=== PATIENT | male | born 1985 | race Caucasian/White ===

== ENCOUNTER 2016-11-13 22:16 | Emergency (ER) | payer BC ==
[~2016-11-13] VITALS: Ht 185.4 cm; Wt 122.9 kg
[2016-11-13 22:19] VITALS: Ht 185.4 cm; Wt 122.9 kg
--- OUTSIDE RECORDS SUMMARY | 2016-11-13 22:20 | XMS REPORT | Continuity of Care Document ---
Author Author Monica Carlton Monica Address Unknown Phone Unavailable Care Team Providers Care Live In Housekeeper Nanny Name Role Phone [employer] Unavailable Unavailable Problems Medications Allergies, Adverse Reactions, Alerts Immunizations Results Vital Signs Encounters Procedures Plan of Care Social History Assessment and Plan Family History Value Date Source Advance Directives Order Name Results Value Date Source
[2016-11-13] MEDS ORDERED: HYDROMORPHONE 2mg/ml INJECTION IV ONE (22:30)
[2016-11-13] MEDS ORDERED: PROCHLORPERAZINE 10mg/2ml INJECTION IV ONE (22:30)
[2016-11-13] MEDS ORDERED: KETOROLAC 30mg/ml INJECTION IV ONE (22:30)
[2016-11-13] MEDS ORDERED: NORMAL SALINE 1,000 ML IV ONE (22:30)
--- NOTE | 2016-11-13 22:33 | ERPDOC ---
Departure Disposition Decision Date: November 13, 2016 Disposition Decision Time: 23:15 Disposition: 01 DISCHARGED HOME, SELF-CARE Impression Impression Impression: Primary Impression: Dysfunctional gallbladder Additional Impression: Gallstones Severity: Severe Condition: Improved Seen By: Physician only Patient Instructions: Gallstones (ED) Problems/Meds/Labs Reviewed?: Yes Medications reviewed and manag: Yes Additional Instructions: Aleve 2 tablets twice daily or ibuprofen 800 mg 4 times daily for baseline pain control Compazine 10 mg one tablet 4 times daily to help with nausea and gallbladder cramps May use [place] as needed for pain Observe a strict low-fat diet See your doctor or in the ER for any worsening condition this weekend Follow up care ordered?: Yes Mental Status: Alert Scripts Prochlorperazine Maleate (Compazine) 10 Mg Tablet 10 MG PO QID, #30 TAB 0 Refills Prov: CARRILLO OLIVER MD 11/13/16 HPI - Abdominal Pain General Chief Complaint: Abdominal Pain Stated Complaint: GALLSTONES, GALLBLADDER ATTACK Time Seen by Provider: 22:23 Source: patient, family History/Exam Limitations: no limitations HPI - Abdominal Pain Initial Comments In the past week the patient has had 2 more episodes of severe right upper quadrant and epigastric abdominal pain, and seen at [facility] in [place]. After CT scan sonogram and multiple labs, the patient was diagnosed with gallstones and gallbladder dysfunction. He was offered to have his gallbladder taken out today, but the patient elected to have it taken out on Wednesday and instead came down in [place] to help his mother move some things at her house. Patient has been having worsening epigastric and right upper quadrant pain for several hours, and then when he ate Kazakh food for dinner the pain seemed to be the most severe. Pt has used Zofran and [place] at home without relief. Occurred At: home Onset: Rapid Duration: 4-6 hrs Quality: sharpness, stabbing Location: RUQ, epigastric Radiation: no radiation Associated Symptoms: nausea/vomiting, DENIES: back pain, chest pain, diaphoresis, fatigue, fever/chills, headache, heartburn, rash, shortness of breath, swelling/mass in abdomen, syncope, weakness Hx of Similar Symptoms: Yes Allergies: Coded Allergies: No Known Drug Allergies (Verified Allergy, Unknown, 11/13/16) Past History Patient Medical History Problem List Updates: Factor V Leiden deficiency Past Medical History GI: gallbladder disease Surgical History Denies Surgeries Social History Smoking Status: Never smoker Does patient use chewing tobac: No Second Hand Exposure: No Substance Use Type: does not use Alcohol Intake: none Record Review Pertinent history updated: Yes Review of Systems Constitutional Constitutional: DENIES: appetite decrease, appetite increase, chills, dizziness , fever, weakness ENMT Ears: DENIES: pain Hearing: DENIES: hearing loss, tinnitus Balance: DENIES: vertigo Mouth/Throat: DENIES: change in swallowing, change in voice, hoarsness, painful swallowing, sore throat Cardiovascular Cardiac: DENIES: chest pain, dyspnea on exertion Rhythm/Rate: DENIES: irregular beat, palpitations, tachycardia Vascular: DENIES: pedal edema Pulmonary Respiratory: DENIES: cough, dyspnea, pleuritic chest pain GI Upper Abdomen: nausea, pain, DENIES: dysphagia, food intolerances, heartburn/ indigestion, hematemesis, vomiting Lower Abdomen: DENIES: blood in stool, dnaiel-colored stools, constipation, diarrhea, melena, pain, painful BM General: DENIES: burning, dysuria, frequency, pain, urgency Musculoskeletal General: DENIES: cramps, joint pain, joint swelling, pain, weakness Integumentary Skin: DENIES: rash, sores Neurological General: DENIES: headache, numbness, tingling, vertigo, weakness Physical Exam General General Nourishment: well nourished, well developed, appears stated age General Body Habitus: well groomed Vitals and Pain First Documented Vital Signs Date Time Temp Pulse Resp B/P Pulse Ox O2 Delivery O2 Flow Rate FiO2 11/13/16 22:19 98.2 68 16 179/101 98 Room Air Weight: Kilograms: Height (feet): Height (inches): Triage Pain Scale: RN VS reviewed by Provider: Yes Normal Exams: Head: Normocephalic w/o trauma Eyes: Pupils are PERRLA w/ EOMI, No scleral icterus, irritation, or foreign bodies noted ENMT: No facial trauma, nasal exudates, pharyngeal erythema, or exudates are noted Neck: Full range of motion, without adenopathy, JVD, bruits or thyromegaly Chest/Resp: Clear all logan, with good airflow, and symmetry bilaterally CV: Regular rate and rhythm, without murmur or gallop, Pulses 2+ all extremities, capillary refill, <2 seconds all ext., no pedal edema noted Lymphatic: No lymphadenopathy, or lymphedema noted Musculoskeletal: No tenderness, or deformity noted, good range of motion, all extremities Integumentary: No rashes, hives, or bruising noted, hair and nails, without abnormality Neurologic: Patient is alert, and oriented, cranial nerves, motor/sensory/ cerebellar, exams w/o gross deficits, to observation Psychiatric: Patient exhibits, appropriate attention, emotion and affect Abdomen (brief) Abdominal Brief: FOUND: bowel normo active x4, soft, tender (return epigastric and right upper quadrant tenderness, guarding but without rebound), NOT FOUND: distended, hepatosplenomegaly Progress Results/Orders Orders Procedure Category Date Status Time Iv Lock (Ed Only) EDM 11/13/16 Transmitted 22:25 Cbc W/Auto LAB 11/13/16 Complete Diff-Reflex Manual Cmp - Comprehensive LAB 11/13/16 Complete Metabolic Lipase LAB 11/13/16 Complete Normal Saline (Normal PHA 11/13/16 Complete Saline Iv) 22:30 Prochlorperazine PHA 11/13/16 Complete (Compazine) 22:30 Ketorolac (Toradol) PHA 11/13/16 Complete 22:30 Hydromorphone PHA 11/13/16 Complete (Dilaudid) 22:30 Lab Results Laboratory Tests Test 11/13/16 22:46 White Blood Count 5.7T/MM3 Red Blood Count 5.53M/MM3 Hemoglobin 16.8GM/DL Hematocrit 47.2% Mean Corpuscular Volume 85.4UM3 Mean Corpuscular Hemoglobin 30.4UUG Mean Corpuscular Hemoglobin Concent 35.6GM/DL RDW Standard Deviation 38.4FL Platelet Count 234T/MM3 Mean Platelet Volume 10.3UM3 Immature Granulocyte % (Auto) 0.2% Neutrophils (%) (Auto) 40.2% Lymphocytes (%) (Auto) 46.4% Monocytes (%) (Auto) 9.8% Eosinophils (%) (Auto) 3.0% Basophils (%) (Auto) 0.4% Absolute Immature Granulocyte (auto 0.01T/MM3 Absolute Neutrophils (auto) 2.3T/MM3 Absolute Lymphocytes (auto) 2.7T/MM3 Absolute Monocytes (auto) 0.6T/MM3 Absolute Eosinophils (auto) 0.2T/MM3 Absolute Basophils (auto) 0.0T/MM3 Turbidity < 20 Sodium Level 143MEQ/L Potassium Level 4.1MEQ/L Chloride Level 106MEQ/L Carbon Dioxide Level 20MEQ/L Anion Gap 17MEQ/L Blood Urea Nitrogen 13.0MG/DL Creatinine 0.9MG/DL Glomerular Filtration Rate Calc 97 BUN/Creatinine Ratio 14RATIO Glucose Level 127MG/DL Calculated Osmolality 277MOSM/KG Calcium Level 10.0MG/DL Total Bilirubin 0.70MG/DL Icterus Index < 2 Aspartate Amino Transf (AST/SGOT) 44U/L Alanine Aminotransferase (ALT/SGPT) 104U/L Alkaline Phosphatase 77U/L Total Protein 8.2G/DL Albumin 5.1G/DL Globulin 3.1G/DL Albumin/Globulin Ratio 1.6RATIO Lipase 114U/L Chemistry Specimen Hemolysis 24 Medications Current ED Medications Sodium Chloride (Normal Saline IV) 1,000 ml @ 0 mls/hr Q0M ONCE IV Last administered on 11/13/16 22:50; Start 11/13/16 at 22:30; Stop 11/13/16 at 22:31; Status DC Prochlorperazine Edisylate (Compazine) 10 mg O ONCE IV Last administered on 22:54; Start 11/13/16 at 22:30; Stop 11/13/16 at 22:31; Status DC Ketorolac Tromethamine (Toradol) 30 mg O ONCE IV Last administered on 22:54; Start 11/13/16 at 22:30; Stop 11/13/16 at 22:31; Status DC Hydromorphone HCl (Dilaudid) 1 mg O ONCE IV Last administered on 11/13/16 22: 54; Start 11/13/16 at 22:30; Stop 11/13/16 at 22:31; Status DC Progress Progress Patient given Toradol, Compazine, Dilaudid, and 1 L normal saline IV fluid bolus - to relief, patient now rates his pain 3 out of 10, and says this is very tolerable CBC - n CMP/L - Hernandez abnormalities only, patient does not have an obstructive pattern to his lab. Patient is sent home with prescription and pack for Compazine to use 4 times daily in addition to an NSAID of his choice. Patient states he has adequate amount of hydrocodone at home, and will use it only as needed CARRILLO OLIVER MD November 13, 2016 22:33
--- OUTSIDE RECORDS SUMMARY | 2016-11-13 22:33 | XMS REPORT | Continuity of Care Document ---
Author Author Monica Carlton Monica Address Unknown Phone Unavailable Care Team Providers Care Applications Support Analyst Name Role Phone [employer] Unavailable Unavailable Problems Medications Allergies, Adverse Reactions, Alerts Immunizations Results Vital Signs Encounters Procedures Plan of Care Social History Assessment and Plan Family History Value Date Source Advance Directives Order Name Results Value Date Source
[2016-11-13 22:50] LABS: BASOPHILS % (AUTO) 0.4 % (0-2); EOSINOPHILS # (AUTO) 0.2 T/MM3 (0-0.5); HCT - HEMATOCRIT 47.2 % (41-53); HGB - HEMOGLOBIN 16.8 GM/DL (13.5-17.5); IMMATURE GRANULOCYTE # (AUTO) 0.01 T/MM3 (0.00-0.03); IMMATURE GRANULOCYTE % (AUTO) 0.2 % (0.0-0.5); LYMPHOCYTES # (AUTO) 2.7 T/MM3 (1-4.8); LYMPHOCYTES % (AUTO) 46.4 % (23-45); MEAN CORPUSCULAR HGB 30.4 UUG (26-34); MEAN CORPUSCULAR HGB CONC(MCHC 35.6 GM/DL (31-37); MEAN CORPUSCULAR VOLUME 85.4 UM3 (80-100); MEAN PLATELET VOLUME 10.3 UM3 (9.4-12.4); MONOCYTES # (AUTO) 0.6 T/MM3 (0-0.8); MONOCYTES % (AUTO) 9.8 % (0-9.0); NEUTROPHILS #(AUTO)-ABSOLUTE 2.3 T/MM3 (1.8-7.7); NEUTROPHILS % (AUTO) 40.2 % (33-66); RED BLOOD COUNT 5.53 M/MM3 (4.50-5.90); WBC - WHITE BLOOD COUNT 5.7 T/MM3 (4.5-11.0)
[2016-11-13 23:00] LABS: ALBUMIN 5.1 G/DL (3.5-5.0); ALBUMIN/GLOBULIN RATIO 1.6 RATIO (1.1-2.2); ALKALINE PHOSPHATASE 77 U/L (38-126); ALT (SGPT) 104 U/L (21-72); ANION GAP 17 MEQ/L (5-15); AST (SGOT) 44 U/L (17-59); BUN/CREATININE RATIO 14 RATIO (6-26); CHLORIDE 106 MEQ/L (98-107); CO2 - CARBON DIOXIDE 20 MEQ/L (22-30); CREATININE 0.9 MG/DL (0.8-1.5); GLOMERULAR FILTRATION RATE 97; GLUCOSE 127 MG/DL (75-110); LIPASE 114 U/L (23-300); POTASSIUM 4.1 MEQ/L (3.6-5); SODIUM 143 MEQ/L (134-144); TOTAL PROTEIN 8.2 G/DL (6.3-8.2)
[2016-11-13] MEDS ORDERED: WARF10TA4 PO (23:07)
[2016-11-13] MEDS ORDERED: PROC-14 PO (23:17)
[2016-11-13 23:30] VITALS: BP 149/79; PULSE 66; RESP 16; TEMP 98.2; O2SAT 97
[2016-11-13] MEDS ORDERED: PROCHLORPERAZINE 10MG (PrePack) SENT HOME ONE (23:30)
[2016-11-14] MEDS ORDERED: HYDR-3989 PO (10:46)
== END 2016-11-13 22:30 | disposition home or self-care (01) ==
LOC: ED 22:16
DX: K80.80 Other cholelithiasis without obstruction (principal); K82.8 Other specified diseases of gallbladder
CPT/HCPCS: 36000; 80053; 83690; 85025; 96361; 96374; 96375; 99284; J0780; J1170; J1885; J7030

== ENCOUNTER 2016-11-14 09:25 | Emergency (ER) | payer BC ==
[~2016-11-14] VITALS: Ht 182.9 cm; Wt 122.6 kg
[~2016-11-14 09:25] MED LIST: PROC-14 PO; WARF10TA4 PO
--- OUTSIDE RECORDS SUMMARY | 2016-11-14 09:28 | XMS REPORT | Continuity of Care Document ---
Author Author Monica Carlton Monica Address Unknown Phone Unavailable Care Team Providers Care Consultants Intern Name Role Phone [employer] Unavailable Unavailable Problems Medications Allergies, Adverse Reactions, Alerts Immunizations Results Vital Signs Encounters Procedures Plan of Care Social History Assessment and Plan Family History Value Date Source Advance Directives Order Name Results Value Date Source
--- OUTSIDE RECORDS SUMMARY | 2016-11-14 09:28 | XMS REPORT | Continuity of Care Document ---
Author Author [facility] Organization [facility] Address Unknown Phone Unavailable Support Name Relationship Address Phone CARRILLO OLIVER MD Caregiver [address] [place] [address] Unavailable MICHEL, LUKE Next Of Kin [address] [place] [address] Insurance Providers Guarantor Edgar Young Address [address] [place] [address] Email DECLINED 11-13-16 [employer] Other Policy Number [id number] Subscriber's Name Edgar Young Relationship 18 Self Group Number [id number] Chief Complaint and Reason for Visit Chief Complaint Abdominal Pain Reason for Visit Gallstones Dysfunctional gallbladder Problems Past Problems Medical Problem Onset Date Dysfunctional gallbladder Unknown Gallstones Unknown Medications Current Home Medications Medication Dose Units Route Directions Days Qty Instructions Start Date Prochlorperazine Maleate (Compazine) 10 Mg Tablet 10 Mg Oral Four Times Daily 30 Tablet 11/13/16 Warfarin Sodium 10 Mg Tablet 1 Tab Oral Daily 11/13/16 Social History Social History Problem Response Recorded Date/Time Onset Date Status Hx Substance Use Y Occasional Marijuana "not for a while" 11/13/2016 11:07pm Not Applicable Not Applicable Hx Alcohol Use Y occasional 11/13/2016 11:07pm Not Applicable Not Applicable Query Response Start Date Stop Date Smoking Status Heavy Smoker Hospital Discharge Instructions No hospital discharge instructions. Plan of Care Discharge Date 11/13/16 10:30pm Disposition 01 DISCHARGED HOME, SELF-CARE Condition at Discharge Improved Instructions/Education Provided Gallstones (ED) Prescriptions See Medication Section Additional Instructions/Education Aleve 2 tablets twice daily or ibuprofen 800 mg 4 times daily for baseline pain control Compazine 10 mg one tablet 4 times daily to help with nausea and gallbladder cramps May use [place] as needed for pain Observe a strict low-fat diet See your doctor or in the ER for any worsening condition this weekend Care Plan and Goals Physician Care Plan Problem: Gallbladder dysfunction with gallstones Goal: Follow up with primary care provider Instructions: Take medications and follow care plan as discussed/written Aleve 2 tablets twice daily or ibuprofen 800 mg 4 times daily for baseline pain control Compazine 10 mg one tablet 4 times daily to help with nausea and gallbladder cramps May use [place] as needed for pain Observe a strict low-fat diet See your doctor or in the ER for any worsening condition this weekend Functional Status No functional status results. Allergies, Adverse Reactions, Alerts Allergen Type Severity Reaction Status Last Updated No Known Drug Allergies Allergy Unknown Active 11/13/16 Immunizations Query Response on File Recorded Date/Time Influenza Vaccine Hx no 11/13/16 11:07pm Tetanus Diptheria Vaccine History 11/10/2016 11/13/16 11:07pm Vital Signs Acute Vital Signs Vital Response Date/Time Temperature (Fahrenheit) 98.2 deg F (96.8 - 99.1) 11/13/2016 11:30pm Temperature (Calculated Celsius) 36.99589 degrees C (36.0 - 37.3) 11/13/2016 11:30pm Pulse Rate (adult) 66 bpm (60 - 100) 11/13/2016 11:30pm Respiratory Rate 16 breaths/min (10 - 20) 11/13/2016 11:30pm O2 Sat by Pulse Oximetry 97 % (90 - 100) 11/13/2016 11:30pm Blood Pressure 149/79 mm Hg 11/13/2016 11:30pm Height (Feet) 6 feet 11/13/2016 10:19pm Height (Inches) 1.00 inches 11/13/2016 10:19pm Weight (Kilograms) 122.900 kg 11/13/2016 10:19pm Body Mass Index (BMI) 35.0 11/13/2016 10:19pm Results Laboratory Results Test Name Result Units Flags Reference Collection Date/Time Result Date/ Time Comments White Blood Count 5.7 T/MM3 4.5-11.0 11/13/2016 10:46pm 11/13/2016 10: 50pm Red Blood Count 5.53 M/MM3 4.50-5.90 11/13/2016 10:46pm 11/13/2016 10: 50pm Hemoglobin 16.8 GM/DL 13.5-17.5 11/13/2016 10:46pm 11/13/2016 10:50pm Hematocrit 47.2 % 41-53 11/13/2016 10:46pm 11/13/2016 10:50pm Mean Corpuscular Volume 85.4 UM3 80-100 11/13/2016 10:46pm 11/13/2016 10:50pm Mean Corpuscular Hemoglobin 30.4 UUG 26-34 11/13/2016 10:46pm 2016 10:50pm Mean Corpuscular Hemoglobin Concent 35.6 GM/DL 31-37 11/13/2016 10:46pm 11/13/2016 10:50pm RDW Standard Deviation 38.4 FL 36.9-50.2 11/13/2016 10:46pm 11/13/2016 10:50pm Platelet Count 234 T/MM3 130-400 11/13/2016 10:46pm 11/13/2016 10:50pm Mean Platelet Volume 10.3 UM3 9.4-12.4 11/13/2016 10:46pm 11/13/2016 10 :50pm Neutrophils (%) (Auto) 40.2 % 33-66 11/13/2016 10:46pm 11/13/2016 10: 50pm Lymphocytes (%) (Auto) 46.4 % H 23-45 11/13/2016 10:46pm 11/13/2016 10: 50pm Monocytes (%) (Auto) 9.8 % H 0-9.0 11/13/2016 10:46pm 11/13/2016 10: 50pm Eosinophils (%) (Auto) 3.0 % 0-4 11/13/2016 10:46pm 11/13/2016 10:50pm Basophils (%) (Auto) 0.4 % 0-2 11/13/2016 10:46pm 11/13/2016 10:50pm Immature Granulocyte % (Auto) 0.2 % 0.0-0.5 11/13/2016 10:46pm 2016 10:50pm Absolute Neutrophils (auto) 2.3 T/MM3 1.8-7.7 11/13/2016 10:46pm 2016 10:50pm Absolute Lymphocytes (auto) 2.7 T/MM3 1-4.8 11/13/2016 10:46pm 2016 10:50pm Absolute Monocytes (auto) 0.6 T/MM3 0-0.8 11/13/2016 10:46pm 2016 10:50pm Absolute Eosinophils (auto) 0.2 T/MM3 0-0.5 11/13/2016 10:46pm 2016 10:50pm Absolute Basophils (auto) 0.0 T/MM3 0-0.2 11/13/2016 10:46pm 2016 10:50pm Absolute Immature Granulocyte (auto 0.01 T/MM3 0.00-0.03 11/13/2016 10: 46pm 11/13/2016 10:50pm Icterus Index < 2 0-7 11/13/2016 10:46pm 11/13/2016 11:00pm Chemistry Specimen Hemolysis 24 0-25 11/13/2016 10:46pm 11/13/2016 11 :00pm 0-25: Specimen Exhibited No Hemolysis. Turbidity < 20 0-20 11/13/2016 10:46pm 11/13/2016 11:00pm Sodium Level 143 MEQ/L 134-144 11/13/2016 10:46pm 11/13/2016 11:00pm Potassium Level 4.1 MEQ/L 3.6-5 11/13/2016 10:46pm 11/13/2016 11:00pm Chloride Level 106 MEQ/L 98-107 11/13/2016 10:46pm 11/13/2016 11:00pm Carbon Dioxide Level 20 MEQ/L L 22-30 11/13/2016 10:46pm 11/13/2016 11: 00pm Anion Gap 17 MEQ/L H 5-15 11/13/2016 10:46pm 11/13/2016 11:00pm Blood Urea Nitrogen 13.0 MG/DL 9-20 11/13/2016 10:46pm 11/13/2016 11: 00pm Creatinine 0.9 MG/DL 0.8-1.5 11/13/2016 10:46pm 11/13/2016 11:00pm BUN/Creatinine Ratio 14 RATIO 6-26 11/13/2016 10:46pm 11/13/2016 11: 00pm Glomerular Filtration Rate Calc 97 11/13/2016 10:46pm 11/13/2016 11 :00pm Glucose Level 127 MG/DL H 75-110 11/13/2016 10:46pm 11/13/2016 11:00pm Calculated Osmolality 277 MOSM/KG 261-280 11/13/2016 10:46pm 2016 11:00pm Calcium Level 10.0 MG/DL 8.4-10.2 11/13/2016 10:46pm 11/13/2016 11: 00pm Total Bilirubin 0.70 MG/DL 0.20-1.30 11/13/2016 10:46pm 11/13/2016 11: 00pm Alkaline Phosphatase 77 U/L 38-126 11/13/2016 10:46pm 11/13/2016 11: 00pm Total Protein 8.2 G/DL 6.3-8.2 11/13/2016 10:46pm 11/13/2016 11:00pm Albumin 5.1 G/DL H 3.5-5.0 11/13/2016 10:46pm 11/13/2016 11:00pm Globulin 3.1 G/DL 2.4-3.6 11/13/2016 10:46pm 11/13/2016 11:00pm Albumin/Globulin Ratio 1.6 RATIO 1.1-2.2 11/13/2016 10:46pm 11/13/2016 11:00pm Aspartate Amino Transf (AST/SGOT) 44 U/L 17-59 11/13/2016 10:46pm 11/13 11:00pm Alanine Aminotransferase (ALT/SGPT) 104 U/L H 21-72 11/13/2016 10:46pm 11/13/2016 11:00pm Lipase 114 U/L 23-300 11/13/2016 10:46pm 11/13/2016 11:00pm Procedures No known history of procedures. Encounters Encounter Location Arrival/Admit Date Discharge/Depart Date Attending Provider Departed Emergency Room [facility] 11/13/16 10:16pm 11/13/16 10: 30pm CARRILLO OLIVER MD Recent Diagnosis
--- OUTSIDE RECORDS SUMMARY | 2016-11-14 09:28 | XMS REPORT | Continuity of Care Document ---
Author Author [facility] Organization [facility] Address Unknown Phone Unavailable Care Team Providers Care Arbitrator Name Role Phone Primary Care Physician Unavailable Source Comments Some departments are not documenting in the electronic medical record. If you do not see the information that you expected, contact Release of Information in the Health Information Management department at [phone] for further assistance in locating additional records.[facility] Active Allergies and Adverse Reactions Not on File Current Medications Not on file Active Problems Not on file Social History Tobacco Use Types Packs/Day Years Used Date Never Assessed Plan of Care Health Maintenance Due Date Last Done Comments Physical (Comprehensive) 1990 Exam Pertussis Vaccine 1994 Tetanus Vaccine 01/03/2000 Influenza Vaccine 03/12/2017 Results from Last 3 Months Not on file
[2016-11-14 09:30] VITALS: Ht 182.9 cm; Wt 122.6 kg
--- NOTE | 2016-11-14 09:33 | ERPDOC ---
Departure Disposition Decision Date: November 14, 2016 Disposition Decision Time: 11:19 Disposition: 01 DISCHARGED HOME, SELF-CARE Impression Impression Impression: Primary Impression: Cholelithiasis Cholelithiasis location: gallbladder Cholecystitis presence: without cholecystitis Biliary obstruction: without biliary obstruction Qualified Codes: K80.20 - Calculus of gallbladder without cholecystitis without obstruction Severity: Moderate Condition: Improved Seen By: Physician only Referrals: YOUR SURGEON 3 Days Patient Instructions: Gallstones (ED), Low Fat Diet (ED) Problems/Meds/Labs Reviewed?: Yes Medications reviewed and manag: Yes Additional Instructions: You have gall stones without evidence of infection or obstruction. Keep your diet low fat (if you're not sure, don't eat it). Take the pain meds and nausea meds as previously prescribed. Follow up to have your gallbladder removed on Wednesday as previously arranged. Follow up care ordered?: Yes Mental Status: Alert, Oriented HPI - CVA/Neuro General Stated Complaint: GALL BLADDER PAIN Time Seen by Provider: 09:39 Source: patient, family Exam Limitations: no limitations HPI - CVA/NEURO Initial Comments 31yo man presents to the ER with RUQ pain. Pt has previously been dx'ed with cholelithiasis without cholecystitis. Has a surgical time/date with Gen Surg in [place] 3 days from today. Pt has continued to present to the ER because he continues to have RUQ pain. Pt also has not been adhering to a cholecystitis diet (ate [place] food yesterday evening!). Pts mother is demanding that pt be admitted for surgery today! Occurred At: home Onset/Timing: Constant Duration: 1 week Pain/Severity Scale: Now & Worst: 10/10 Severity: severe Hx of Similar Symptoms: Yes Allergies: Coded Allergies: No Known Drug Allergies (Verified Allergy, Unknown, 11/14/16) Past History Past Medical History GI: gallbladder disease Surgical History Denies Surgeries Social History Does patient use chewing tobac: No Second Hand Exposure: No Substance Use Type: does not use Alcohol Intake: none Review of Systems GI Upper Abdomen: nausea, pain, see HPI, DENIES: dysphagia, food intolerances, heartburn/indigestion, hematemesis, vomiting All other Systems All Other Systems: Reviewed and Negative Physical Exam General General Nourishment: well nourished, well developed, appears stated age, no acute distress, adult, obese General Body Habitus: well groomed Vitals and Pain First Documented Vital Signs Date Time Temp Pulse Resp B/P Pulse Ox O2 Delivery O2 Flow Rate FiO2 11/14/16 09:30 98.5 80 20 171/104 98 Room Air Weight: Kilograms: Height (feet): 6 Height (inches): 1.00 Triage Pain Scale: RN VS reviewed by Provider: Yes Normal Exams: Head: Normocephalic w/o trauma Eyes: Pupils are PERRLA w/ EOMI, No scleral icterus, irritation ENMT: No facial trauma, nasal exudates, pharyngeal erythema Neck: Full range of motion, without adenopathy Lymphatic: No lymphadenopathy Musculoskeletal: No tenderness, or deformity noted Integumentary: No rashes, hives, or bruising noted Neurologic: Patient is alert, and oriented Psychiatric: Patient exhibits, appropriate attention Respiratory (brief) Respiratory: FOUND: clear all logan, equal bilaterally, symmetrical, NOT FOUND : rales, wheezes Cardiovascular (brief) Cardiac: FOUND: regular rate, regular rhythm, NOT FOUND: click, gallop, murmur , pedal edema, peripheral edema, rub Capillary Refill: <2 sec Pulses: all distal extremities, equal, strong Abdomen (brief) Abdominal Brief: FOUND: bowel normo active x4, soft, tender (TTP in RUQ without peritoneal signs; Pos Ramirez's), NOT FOUND: distended, hepatosplenomegaly, pulsatile mass Differential Diagnoses Considering: Other (Constipation; cholecystitis; cholelithiasis; pyelonephritis ) Progress Results/Orders Orders Procedure Category Date Status Time Iv Lock (Ed Only) EDM 11/14/16 Transmitted 09:39 Nothing By Mouth (Ed EDM 11/14/16 Transmitted Only) 09:39 Cbc W/Auto LAB 11/14/16 Complete Diff-Reflex Manual 09:39 Bmp - Basic Metabolic LAB 11/14/16 Complete Panel 09:39 Normal Saline (Normal PHA 11/14/16 Complete Saline Iv) 09:39 Ketorolac (Toradol) PHA 11/14/16 Complete 09:45 Lipase LAB 11/14/16 Complete 09:50 Hepatic Panel LAB 11/14/16 Complete 09:50 Lab Results Laboratory Tests Test 11/14/16 10:09 White Blood Count 7.2T/MM3 Red Blood Count 5.48M/MM3 Hemoglobin 16.4GM/DL Hematocrit 46.7% Mean Corpuscular Volume 85.2UM3 Mean Corpuscular Hemoglobin 29.9UUG Mean Corpuscular Hemoglobin Concent 35.1GM/DL RDW Standard Deviation 38.3FL Platelet Count 226T/MM3 Mean Platelet Volume 10.4UM3 Immature Granulocyte % (Auto) 0.1% Neutrophils (%) (Auto) 61.4% Lymphocytes (%) (Auto) 25.1% Monocytes (%) (Auto) 11.2% Eosinophils (%) (Auto) 1.8% Basophils (%) (Auto) 0.4% Absolute Immature Granulocyte (auto 0.01T/MM3 Absolute Neutrophils (auto) 4.4T/MM3 Absolute Lymphocytes (auto) 1.8T/MM3 Absolute Monocytes (auto) 0.8T/MM3 Absolute Eosinophils (auto) 0.1T/MM3 Absolute Basophils (auto) 0.0T/MM3 Turbidity < 20 Sodium Level 144MEQ/L Potassium Level 4.0MEQ/L Chloride Level 108MEQ/L Carbon Dioxide Level 20MEQ/L Anion Gap 16MEQ/L Blood Urea Nitrogen 10.0MG/DL Creatinine 0.8MG/DL Glomerular Filtration Rate Calc 111 BUN/Creatinine Ratio 13RATIO Glucose Level 100MG/DL Calculated Osmolality 276MOSM/KG Calcium Level 9.6MG/DL Total Bilirubin 0.60MG/DL Conjugated Bilirubin 0.00MG/DL Unconjugated Bilirubin 0.10MG/DL Icterus Index < 2 Aspartate Amino Transf (AST/SGOT) 43U/L Alanine Aminotransferase (ALT/SGPT) 99U/L Alkaline Phosphatase 69U/L Total Protein 7.7G/DL Albumin 4.7G/DL Globulin 3.0G/DL Albumin/Globulin Ratio 1.6RATIO Lipase 61U/L Chemistry Specimen Hemolysis 23 Medications Current ED Medications Sodium Chloride (Normal Saline IV) 1,000 ml @ 0 mls/hr Q0M ONCE IV Last administered on 11/14/16 10:07; Start 11/14/16 at 09:39; Stop 11/14/16 at 09:41; Status DC Ketorolac Tromethamine (Toradol) 30 mg O ONCE IV Last administered on 10:08; Start 11/14/16 at 09:45; Stop 11/14/16 at 09:46; Status DC Progress Progress No evidence of infection, irritation, or pancreatitis. Discussed need for low- fat diet and keeping GB happy. Pt voiced understanding of dx, prognosis, tx, and need to f/u with counseling surgeon as discussed. MARY MCCONNELL DO November 14, 2016 09:33
[2016-11-14] MEDS ORDERED: NORMAL SALINE 1,000 ML IV ONE (09:39)
[2016-11-14] MEDS ORDERED: KETOROLAC 30mg/ml INJECTION IV ONE (09:45)
--- OUTSIDE RECORDS SUMMARY | 2016-11-14 09:49 | XMS REPORT | Continuity of Care Document ---
Author Author [facility] Organization [facility] Address Unknown Phone Unavailable Care Team Providers Care Yarn Weigher Name Role Phone Primary Care Physician Unavailable Source Comments Some departments are not documenting in the electronic medical record. If you do not see the information that you expected, contact Release of Information in the Health Information Management department at [phone] for further assistance in locating additional records.[facility] Active Allergies and Adverse Reactions Not on [...]
--- OUTSIDE RECORDS SUMMARY | 2016-11-14 09:49 | XMS REPORT | Continuity of Care Document ---
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
[2016-11-14 10:15] LABS: BASOPHILS % (AUTO) 0.4 % (0-2); EOSINOPHILS # (AUTO) 0.1 T/MM3 (0-0.5); EOSINOPHILS % (AUTO) 1.8 % (0-4); HCT - HEMATOCRIT 46.7 % (41-53); HGB - HEMOGLOBIN 16.4 GM/DL (13.5-17.5); IMMATURE GRANULOCYTE # (AUTO) 0.01 T/MM3 (0.00-0.03); IMMATURE GRANULOCYTE % (AUTO) 0.1 % (0.0-0.5); LYMPHOCYTES # (AUTO) 1.8 T/MM3 (1-4.8); LYMPHOCYTES % (AUTO) 25.1 % (23-45); MEAN CORPUSCULAR HGB 29.9 UUG (26-34); MEAN CORPUSCULAR HGB CONC(MCHC 35.1 GM/DL (31-37); MEAN CORPUSCULAR VOLUME 85.2 UM3 (80-100); MEAN PLATELET VOLUME 10.4 UM3 (9.4-12.4); MONOCYTES # (AUTO) 0.8 T/MM3 (0-0.8); MONOCYTES % (AUTO) 11.2 % (0-9.0); NEUTROPHILS #(AUTO)-ABSOLUTE 4.4 T/MM3 (1.8-7.7); NEUTROPHILS % (AUTO) 61.4 % (33-66); RED BLOOD COUNT 5.48 M/MM3 (4.50-5.90); WBC - WHITE BLOOD COUNT 7.2 T/MM3 (4.5-11.0)
[2016-11-14 10:25] LABS: ALBUMIN 4.7 G/DL (3.5-5.0); ALBUMIN/GLOBULIN RATIO 1.6 RATIO (1.1-2.2); ALKALINE PHOSPHATASE 69 U/L (38-126); ALT (SGPT) 99 U/L (21-72); ANION GAP 16 MEQ/L (5-15); AST (SGOT) 43 U/L (17-59); BUN/CREATININE RATIO 13 RATIO (6-26); CALCIUM 9.6 MG/DL (8.4-10.2); CHLORIDE 108 MEQ/L (98-107); CO2 - CARBON DIOXIDE 20 MEQ/L (22-30); CREATININE 0.8 MG/DL (0.8-1.5); GLOMERULAR FILTRATION RATE 111; GLUCOSE 100 MG/DL (75-110); LIPASE 61 U/L (23-300); SODIUM 144 MEQ/L (134-144); TOTAL PROTEIN 7.7 G/DL (6.3-8.2)
--- NOTE | 2016-11-14 10:25 | NUR ---
STATUS PT RESTING IN CART WITH EYES CLOSED. REPORTS DECREASE IN PAIN TO 4-5/10 AND STATES "IT'S BETTER. I MEAN IT'S NOT PERFECT, BUT IT'S BETTER." VSS, CALL LIGHT WITHIN REACH. WILL CONTINUE TO MONITOR.
[2016-11-14] MEDS ORDERED: HYDR-3989 PO (10:46)
--- NOTE | 2016-11-14 10:55 | NUR ---
STATUS PT RESTING COMFORTABLY IN CART. DENIES NEEDS AT THIS TIME. REPORTS PAIN CURRENTLY 09/18. LIGHTS TURNED OFF FOR INCREASED COMFORT. CALL LIGHT WITHIN REACH, WILL CONTINUE TO MONITOR.
[2016-11-14 11:58] VITALS: BP 123/73; PULSE 70; RESP 20; TEMP 98.5; O2SAT 96
--- NOTE | 2016-11-14 11:58 | NUR ---
DISCHARGE WRITTEN INSTRUCTIONS REVIEWED AND SENT WITH PT. PT VERBALIZES UNDERSTANDING OF DI, DENIES QUESTIONS. REPORTS PAIN STILL 3-10/19. PT AMBULATES OUT OF ER WITH STEADY GAIT ACCOMP BY MOTHER AT THIS TIME.
== END 2016-11-14 11:58 | disposition home or self-care (01) ==
LOC: ED 09:25
DX: K80.20 Calculus of gallbladder without cholecystitis without obstruction (principal)
CPT/HCPCS: 80048; 80076; 83690; 85025; 96361; 96374; 99284; J1885; J7030